=== PATIENT | male | born 1975 | race Caucasian/White ===

== ENCOUNTER 2018-02-01 18:21 | Emergency (ER) | payer OTHER ==
[~2018-02-01] VITALS: Ht 172.7 cm; Wt 79.4 kg
[2018-02-01] MEDS ORDERED: TRAMADOL 50 MG50 MG PO (18:40)
[2018-02-01] MEDS ORDERED: MUSCLE RELAXANT (18:41)
[2018-02-01] MEDS ORDERED: UNKNOWN PAIN MED (18:42)
[2018-02-01] MEDS ORDERED: NAPROSYN500 MG PO (18:45)
[2018-02-01 19:33] VITALS: BP 122/91
== END 2018-02-01 19:35 ==
LOC: M.ERS 18:21
DX: M54.9 Dorsalgia, unspecified (principal)

== ENCOUNTER 2019-01-14 01:38 | Emergency (ER) | payer OTHER ==
[~2019-01-14] VITALS: Ht 170.2 cm; Wt 79.4 kg
[~2019-01-14 01:38] MED LIST: MUSCLE RELAXANT; NAPROSYN500 MG PO; TRAMADOL 50 MG50 MG PO; UNKNOWN PAIN MED
[2019-01-14] MEDS ORDERED: NOHOMEMEDICATIONS (01:50)
[2019-01-14 02:28] LABS: INFLUENZA A ANTIGEN None Detected (None Detect); INFLUENZA B ANTIGEN None Detected (None Detect)
[2019-01-14 02:37] VITALS: BP 118/64
== END 2019-01-14 02:37 ==
LOC: M.ERS 01:38
PROVIDERS: Personal Emergency Response Attendant
DX: S63.592A Other specified sprain of left wrist, initial encounter (principal); X50.1XXA Overexertion from prolonged static or awkward postures, initial encounter; Y92.89 Other specified places as the place of occurrence of the external cause; Y93.89 Activity, other specified; Y99.8 Other external cause status